=== PATIENT | male | born 1990 | race Caucasian/White ===

== ENCOUNTER 2023-08-05 07:05 | Emergency (ER) | payer OTHER ==
[2023-08-05 07:25] VITALS: PULSE 70; RESP 18; TEMP 98
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
[2023-08-05 09:06] VITALS: BP 128/82
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
[2023-08-05 09:35] VITALS: O2SAT 95
== END 2023-08-05 09:46 | disposition home or self-care (01) ==
LOC: ED 07:05
DX: Z04.2 Encounter for examination and observation following work accident (principal); S70.02XA Contusion of left hip, initial encounter; S80.02XA Contusion of left knee, initial encounter; S50.11XA Contusion of right forearm, initial encounter; V89.0XXA Person injured in unspecified motor-vehicle accident, nontraffic, initial encounter; Y92.64 Mine or pit as the place of occurrence of the external cause; Y99.0 Civilian activity done for income or pay
CPT/HCPCS: 71045; 72110; 73080; 73090; 73522; 73562; 99283